=== PATIENT | female | born 1930 | race Caucasian/White ===

== ENCOUNTER 2017-10-15 16:45 | Emergency (ER) | payer MEDICARE, BC ==
--- NOTE | 2017-10-15 17:28 | EDM.PDOC ---
ED HPI GENERAL MEDICAL PROBLEM - General Chief Complaint: ENT Problem Stated Complaint: SOB Time Seen by Provider: 10/15/17 16:51 Source of Information: Reports: Patient, Family, RN Notes Reviewed - History of Present Illness INITIAL COMMENTS - FREE TEXT/NARRATIVE: 87-year-old female comes in with cough and severe sore throat. Her started about 5-7 days ago and is just been steadily getting worse. It has been very painful to swallow. Her cough has started becoming productive. She does have throat and anterior chest discomfort with coughing. No fever or chills. No major nasal or sinus congestion, she does feel bilateral ear pressure worse with swallowing and coughing. - Related Data Allergies Allergy/AdvReac Type Severity Reaction Status Date / Time aspirin [From Percodan] Allergy Hives Verified 10/15/17 17:07 cefuroxime axetil Allergy unsure Verified 10/15/17 17:07 [From Ceftin] cephalexin [Cephalexin] Allergy Hives Verified 10/15/17 17:07 ciprofloxacin Allergy Hives Verified 10/15/17 17:07 codeine Allergy Hives Verified 10/15/17 17:07 divalproex sodium Allergy unsure Verified 10/15/17 17:07 [From Depakote] doxycycline Allergy Hives Verified 10/15/17 17:07 levofloxacin [From Levaquin] Allergy Hives Verified 10/15/17 17:07 morphine Allergy Hives Verified 10/15/17 17:07 nitrofurantoin Allergy Hives Verified 10/15/17 17:07 macrocrystalline [From Macrodantin] oxycodone HCl [From Percodan] Allergy Hives Verified 10/15/17 17:07 oxycodone terephthalate Allergy Hives Verified 10/15/17 17:07 [From Percodan] Sulfa (Sulfonamide Allergy Hives Verified 10/15/17 17:07 Antibiotics) tetracycline [Tetracycline] Allergy Hives Verified 10/15/17 17:07 Home Meds: Home Meds Ascorbic Acid [Vitamin C] 1,000 mg PO DAILY 10/15/17 [History] Aspirin 81 mg PO DAILY 10/15/17 [History] Calcium/Magnesium/Zinc [Calcium & Magnesium plus Zinc] 1 tab PO DAILY 10/15/17 [ History] Cyanocobalamin (Vitamin B12) [Vitamin B12] 1,000 mg PO DAILY 10/15/17 [History] Ergocalciferol (Vitamin D2) [Vitamin D2] 2,000 units PO DAILY 10/15/17 [History] Fluticasone Propionate [Flonase Allergy Relief] 1 spray CITLALY DAILY 10/15/17 [ History] Furosemide [Lasix] 80 mg PO DAILY 10/15/17 [History] Gluc/Osmar-Msm#1/Vit C/Delfin/Bor [Owwzdok-Wrxmj-TSN Complex Cplt] 1 tab PO BID [History] Ketotifen [Ketotifen 0.025% Ophth Soln] 1 drop EYEBOTH DAILY 10/15/17 [History] LORazepam [Ativan] 0.5 mg PO BID PRN 10/15/17 [History] Multivitamin with Minerals [Multivitamins with Minerals] 1 tab PO DAILY [History] Multivits-Min/Iron/FA/Lutein [Centrum Silver Women Tablet] 1 tab PO DAILY [History] Nebivolol HCl [Bystolic] 2.5 mg PO DAILY 10/15/17 [History] Nitroglycerin [Nitrostat] 0.4 mg PO Q5M PRN 10/15/17 [History] Sennosides [Senna] 1 tab PO DAILY 10/15/17 [History] Valsartan 320 mg PO DAILY 10/15/17 [History] amLODIPine Besylate [Amlodipine Besylate] 10 mg PO DAILY 10/15/17 [History] atorvaSTATin [Lipitor] 20 mg PO DAILY 10/15/17 [History] Social & Family History - Tobacco Use Second Hand Smoke Exposure: No - Alcohol Use Days Per Week of Alcohol Use: 0 - Recreational Drug Use Recreational Drug Use: No ED ROS ENT - Review of Systems Review Of Systems: See Below Constitutional: Denies: Fever, Chills HEENT: Reports: Sinus Problem. Denies: Throat Pain Respiratory: Denies: Shortness of Breath Cardiovascular: Reports: Chest Pain (With coughing) GI/Abdominal: Denies: Abdominal Pain, Nausea, Vomiting Musculoskeletal: Denies: Neck Pain Skin: Reports: No Symptoms Neurological: Reports: No Symptoms ED EXAM, ENT - Physical Exam Exam: See Below General Appearance: Alert, Mild Distress Eye Exam: Bilateral Eye: PERRL Mouth/Throat: Other (There is mild pharyngeal erythema). No: Throat Swelling Head: No: Facial Swelling, Facial Tenderness Neck: Supple, Lymphadenopathy (L), Lymphadenopathy (R) (Mild) Respiratory/Chest: No Respiratory Distress, Lungs Clear, Normal Breath Sounds. No: Rales, Rhonchi, Wheezing Cardiovascular: Regular Rate, Rhythm GI/Abdominal: Soft, Non-Tender Extremities: Normal Inspection, Normal Range of Motion Neurological: Alert, Oriented, No Motor/Sensory Deficits Skin: Warm, Dry, Normal Color Course - Vital Signs Last Recorded V/S: Last Vital Signs Temp 97.8 F 10/15/17 17:03 Pulse Resp 16 10/15/17 17:03 BP 154/57 H 10/15/17 17:03 Pulse Ox 100 10/15/17 17:03 - Orders/Labs/Meds Orders: Active Orders 24 hr Category Date Time Status Chest 1V Frontal [CR] Stat Exams 10/15/17 17:22 Taken STREP SCRN A RAPID W CULT CONF [RM] Stat Lab 10/15/17 17:30 Results Meds: Medications Discontinued Medications Generic Name Dose Route Start Last Admin Trade Name Tima PRN Reason Stop Dose Admin Hydrocodone Bitart/Acetaminophen 1 tab 10/15/17 19:23 [place] 325-5 Mg PO 10/15/17 19:24 ONETIME ONE Azithromycin 500 mg 10/15/17 19:23 Zithromax PO 10/15/17 19:24 ONETIME ONE Prednisone 20 mg 10/15/17 19:23 Prednisone PO 10/15/17 19:24 ONETIME ONE - Re-Assessments/Exams Free Text/Narrative Re-Assessment/Exam: 10/15/17 19:24 rapid strep is negative, asked x-ray does not show acute infiltrate. Ever due to severity of her pharyngitis, bronchitis am going to treat her with Zithromax, oral prednisone. We will give her hydrocodone right now to help her be able to rest and sleep better tonight. Discharge instructions as documented. Departure - Departure Time of Disposition: 19:12 Disposition: Home, Self-Care 01 Condition: Fair Clinical Impression: Bronchitis Pharyngitis Qualifiers: Pharyngitis/tonsillitis etiology: unspecified etiology Qualified Code(s): J02.9 - Acute pharyngitis, unspecified - Discharge Information Instructions: Pharyngitis, Acute Bronchitis, [id number] Referrals: PCP,Not In Area [Primary Care Provider] - Forms: ED Department Discharge Additional Instructions: Zithromax antibiotic, you've been given your first dose this evening, continue that for the next 5 days as prescribed, prednisone 20 mg every morning for the next 4 days, that should help swelling and inflammation, you've been given one hydrocodone while here in the ED, a prescription for 10 tabs, Insta med has been provided. Was in half and take one half tablet every 6 hours along with 500 mg Tylenol as needed for severe pain. When the discomfort lessens than switch over to 500 mg Tylenol 3-4 times daily as needed. Follow-up clinic if not much better within 5-7 days as expected, return to ED if symptoms worsening in any way - My Orders Last 24 Hours: My Active Orders 10/15/17 17:22 Chest 1V Frontal [CR] Stat 10/15/17 17:30 STREP SCRN A RAPID W CULT CONF [RM] Stat - Assessment/Plan Last 24 Hours: My Active Orders 10/15/17 17:22 Chest 1V Frontal [CR] Stat 10/15/17 17:30 STREP SCRN A RAPID W CULT CONF [RM] Stat
[2017-10-15] MEDS ORDERED: Acetaminophen/HYDROcodone 325-5 MG Tab PO ONE (19:23)
[2017-10-15] MEDS ORDERED: Azithromycin 250 MG Tab PO ONE (19:23)
[2017-10-15] MEDS ORDERED: predniSONE 20 MG Tab PO ONE (19:23)
--- NOTE | 2017-10-19 12:10 | CR ---
Chest: Portable view of the chest was obtained. Comparison: Prior chest x-ray of 06/01/14. Heart size and mediastinum are normal. Lungs are clear with no acute infiltrates. Bony structures are grossly intact. Impression: 1. Nothing acute is identified on portable chest x-ray. Diagnostic code #1
== END 2017-10-15 19:42 | disposition home or self-care (01) ==
LOC: JD.ED 16:45
DX: J40 Bronchitis, not specified as acute or chronic (principal); J02.9 Acute pharyngitis, unspecified; Z79.82 Long term (current) use of aspirin; Z79.899 Other long term (current) drug therapy; Z88.1 Allergy status to other antibiotic agents; Z88.2 Allergy status to sulfonamides; Z88.5 Allergy status to narcotic agent; Z88.6 Allergy status to analgesic agent; Z88.8 Allergy status to other drugs, medicaments and biological substances
CPT/HCPCS: 71010; 87081; 87430; 99283; A9270

== ENCOUNTER 2018-06-11 13:12 | Emergency (ER) | payer MEDICARE, BC ==
[2018-06-11] MEDS ORDERED: Acetaminophen/HYDROcodone 325-5 MG Tab PO STA (13:59)
[2018-06-11] MEDS ORDERED: predniSONE 20 MG Tab PO STA (13:59)
[2018-06-11] MEDS ORDERED: Orphenadrine 100 MG Tab.ER PO STA (14:00)
--- NOTE | 2018-06-11 14:09 | EDM.PDOC ---
ED HPI GENERAL MEDICAL PROBLEM - General Chief Complaint: Back Pain or Injury Stated Complaint: BACK PAIN Time Seen by Provider: 06/11/18 13:27 Source of Information: Reports: Patient, Family (Granddaughter) History Limitations: Reports: No Limitations - History of Present Illness INITIAL COMMENTS - FREE TEXT/NARRATIVE: The patient states that she fell in January 2018, and that she has had intermittent lower RIGHT back pain ever since. She states that x-rays were performed the same night as she fell were negative for fracture. The patient now presents with lower LEFT back pain, but the tingling sensation radiating down her left lower extremity to her toes, after pulling a heavy tote yesterday. She states that she took some Excedrin around 11:00 to noon today. The patient's PCP is Dr. Jaya Rubi at [facility]. Left Lower Back Pain Score (Numeric/FACES): 9 - Related Data Allergies Allergy/AdvReac Type Severity Reaction Status Date / Time aspirin [From Percodan] Allergy Hives Verified 06/11/18 13:24 cefuroxime axetil Allergy unsure Verified 06/11/18 13:24 [From Ceftin] cephalexin [Cephalexin] Allergy Hives Verified 06/11/18 13:24 ciprofloxacin Allergy Hives Verified 06/11/18 13:24 codeine Allergy Hives Verified 06/11/18 13:24 divalproex sodium Allergy unsure Verified 06/11/18 13:24 [From Depakote] doxycycline Allergy Hives Verified 06/11/18 13:24 levofloxacin [From Levaquin] Allergy Hives Verified 06/11/18 13:24 morphine Allergy Hives Verified 06/11/18 13:24 nitrofurantoin Allergy Hives Verified 06/11/18 13:24 macrocrystalline [From Macrodantin] oxycodone HCl [From Percodan] Allergy Hives Verified 06/11/18 13:24 oxycodone terephthalate Allergy Hives Verified 06/11/18 13:24 [From Percodan] Sulfa (Sulfonamide Allergy Hives Verified 06/11/18 13:24 Antibiotics) tetracycline [Tetracycline] Allergy Hives Verified 06/11/18 13:24 Home Meds: Home Meds Ascorbic Acid [Vitamin C] 1,000 mg PO DAILY 10/15/17 [History] Calcium/Magnesium/Zinc [Calcium & Magnesium plus Zinc] 1 tab PO DAILY 10/15/17 [ History] Cyanocobalamin (Vitamin B12) [Vitamin B12] 1,000 mg PO DAILY 10/15/17 [History] Ergocalciferol (Vitamin D2) [Vitamin D2] 2,000 units PO DAILY 10/15/17 [History] Fluticasone Propionate [Flonase Allergy Relief] 1 spray CITLALY DAILY 10/15/17 [ History] Furosemide [Lasix] 80 mg PO DAILY 10/15/17 [History] Gluc/Osmar-Msm#1/Vit C/Delfin/Bor [Ahoxmin-Ukpug-NCK Complex Cplt] 1 tab PO BID [History] Ketotifen [Ketotifen 0.025% Ophth Soln] 1 drop EYEBOTH DAILY 10/15/17 [History] LORazepam [Ativan] 0.5 mg PO BID PRN 10/15/17 [History] Multivitamin with Minerals [Multivitamins with Minerals] 1 tab PO DAILY [History] Multivits-Min/Iron/FA/Lutein [Centrum Silver Women Tablet] 1 tab PO DAILY [History] Nebivolol HCl [Bystolic] 2.5 mg PO DAILY 10/15/17 [History] Nitroglycerin [Nitrostat] 0.4 mg PO Q5M PRN 10/15/17 [History] Sennosides [Senna] 1 tab PO DAILY 10/15/17 [History] Valsartan 320 mg PO DAILY 10/15/17 [History] amLODIPine Besylate [Amlodipine Besylate] 10 mg PO DAILY 10/15/17 [History] atorvaSTATin [Lipitor] 20 mg PO DAILY 10/15/17 [History] Acetaminophen/HYDROcodone [[place]nee 325-5 MG] 1 tab PO Q6H PRN #15 tablet 06/11/18 [Rx] Orphenadrine [Norflex] 1 tab PO Q12H PRN #20 tab.er 06/11/18 [Rx] predniSONE [Prednisone] 1 tab PO DAILY #6 tablet 06/11/18 [Rx] Past Medical History HEENT History: Reports: Impaired Vision Cardiovascular History: Reports: High Cholesterol, Hypertension Gastrointestinal History: Reports: Colon Polyp, GERD 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: Reports: Endocrine/Metabolic History: Reports: Other (See Below) (Prediabetes) Oncologic (Cancer) History: Reports: Basal Cell Carcinoma (right nose, upper lip ) - Past Surgical History HEENT Surgical History: Reports: Cataract Surgery, Eye Surgery (Pellet excision from left eye, cyst from right eye), Tonsillectomy Cardiovascular Surgical History: Reports: Other (See Below) (Implantable loop recorder) GI Surgical History: Reports: Cholecystectomy, Colonoscopy Female Surgical History: Reports: Hysterectomy, Salpingo-Oophorectomy Neurological Surgical History: Reports: Lumbar Spine (L4-L5 fusion 2009) Social & Family History - Family History Family Medical History: Noncontributory - Tobacco Use Smoking Status *Q: Never Smoker - Caffeine Use Caffeine Use: Reports: Coffee - Alcohol Use Alcohol Use History: No - Recreational Drug Use Recreational Drug Use: No ED ROS GENERAL - Review of Systems Review Of Systems: ROS reveals no pertinent complaints other than HPI. ED EXAM,LOWER BACK PAIN/INJURY - Physical Exam Exam: See Below Exam Limited By: No Limitations General Appearance: Alert, WD/WN, No Apparent Distress Back Exam: Other (No visible abnormality to palpation of the patient's thoracic or lumbar spinous processes. There is reproducible tenderness to palpation over the left SI joint; none over the right SI joint. The patient is able to flex the spine to about 45, and extend to about 30. She is able to tilt to the left to about 10, to the right to about 30. She is able to twist the spine to about 20 bilaterally. Unilateral knee bend is impaired on the left, but not on the right. Straight leg raise is negative to about 80 on the right, 45 on the left, made worse with dorsiflexion of the left foot. Vascular status of the left lower extremity is intact.) Course - Vital Signs Last Recorded V/S: Last Vital Signs Temp 37.4 C 06/11/18 13:19 Pulse 69 06/11/18 13:19 Resp 16 06/11/18 13:19 BP 128/97 H 06/11/18 13:19 Pulse Ox 100 06/11/18 13:19 - Orders/Labs/Meds Meds: Medications Discontinued Medications Generic Name Dose Route Start Last Admin Trade Name Freq PRN Reason Stop Dose Admin Hydrocodone Bitart/Acetaminophen 1 tab 06/11/18 13:59 06/11/18 14:17 [place] 325-5 Mg PO 06/11/18 14:00 1 tab ONETIME STA Administration Orphenadrine Citrate 100 mg 06/11/18 14:00 06/11/18 14:17 Norflex PO 06/11/18 14:01 100 mg ONETIME STA Administration Prednisone 60 mg 06/11/18 13:59 06/11/18 14:18 Prednisone PO 06/11/18 14:00 60 mg ONETIME STA Administration Prednisone Confirm 06/11/18 14:12 06/11/18 14:16 Prednisone Administered 06/11/18 14:13 Not Given Dose 20 mg .ROUTE .[facility] - Re-Assessments/Exams Free Text/Narrative Re-Assessment/Exam: 06/11/18 14:04 The patient's history and physical examination is consistent with a herniated intervertebral disc. We discussed treatment options, and have decided to proceed with oral prednisone, even though that will almost certainly cause the patient's blood glucoses to elevate. The patient agrees to follow-up with her PCP in [place] on 06/14/2018, in this regard. I am going to recommend that the patient not take her daily aspirin (or any NSAID) while on prednisone. In addition, the patient will be treated with Shawnee and Norflex. The patient will be advised to not take lorazepam while taking [place]. Departure - Departure Time of Disposition: 14:04 Disposition: Home, Self-Care 01 Condition: Fair Clinical Impression: Herniated lumbar intervertebral disc - Discharge Information *PRESCRIPTION DRUG MONITORING PROGRAM REVIEWED*: Not Applicable *COPY OF PRESCRIPTION DRUG MONITORING REPORT IN PATIENT TANYA: Not Applicable Prescriptions: Acetaminophen/HYDROcodone [Shawnee 325-5 MG] 1 tab PO Q6H PRN #15 tablet PRN Reason: Pain (Moderate 4-6) Orphenadrine [Norflex] 1 tab PO Q12H PRN #20 tab.er PRN Reason: Muscle Spasm predniSONE [Prednisone] 1 tab PO DAILY #6 tablet Instructions: Herniated Disk Referrals: PCP,Not In Area [Primary Care Provider] - Jaya Rubi MD [Ordering Only Provider] - Forms: ED Department Discharge Additional Instructions: You were seen in the emergency room for low back pain, radiating down your left lower extremity. Based on your history and physical examination, you are MOST LIKELY suffering from a herniated lumbar intervertebral disc. You have been started on the steroid prednisone. Take one tablet daily, starting tomorrow, 06/12/2018, as prescribed. Prednisone will almost certainly cause your blood sugars to go high. You need to follow-up with your primary care physician in [place] on 06/14/2018, in this regard. It is very important that you not take prednisone and a NSAID, including aspirin , ibuprofen, or Aleve, at the same time, as taking prednisone and a NSAID together significantly increase your risk for developing a bleeding ulcer. We recommend that you stop taking your aspirin until your prednisone is finished. You have been started on the pain reliever Shawnee. Take one tablet up to every 6 hours, as needed for pain. Your next dose would be at 8:00 tonight. We recommend that you not take your Ativan if you're taking Shawnee, as the two of them together can cause too much drowsiness. You have been started on the muscle relaxant Norflex. Take one tablet every 12 hours, starting tomorrow morning, 06/12/2018, as prescribed. It is very important that you stay active. Swimming is best, but walking is also good. If any other problems, please do not hesitate to return to the ER.
[2018-06-11] MEDS ORDERED: predniSONE 20 MG Tab ONE (14:12)
== END 2018-06-11 14:30 | disposition home or self-care (01) ==
LOC: JD.ED 13:12
DX: M51.26 Other intervertebral disc displacement, lumbar region (principal); E78.00 Pure hypercholesterolemia, unspecified; I10 Essential (primary) hypertension; Z88.1 Allergy status to other antibiotic agents; Z88.5 Allergy status to narcotic agent; Z88.8 Allergy status to other drugs, medicaments and biological substances; Z79.899 Other long term (current) drug therapy
CPT/HCPCS: 99283; A9270

== ENCOUNTER 2019-10-01 07:58 | Emergency (ER) | payer MEDICARE, BC ==
--- NOTE | 2019-10-01 08:04 | EDM.PDOC ---
ED HPI GENERAL MEDICAL PROBLEM - General Chief Complaint: General Stated Complaint: [facility] Time Seen by Provider: 10/01/19 08:03 - History of Present Illness INITIAL COMMENTS - FREE TEXT/NARRATIVE: 59-year-old female brought in by EMS left-sided neck shoulder and arm pain. On Thursday 3 days ago she developed some left-sided chest pain into her neck and shoulder. This is now premature neck and back on the left side around her shoulder blade this comes into her neck where it seems to be the worst and down her left arm all the way down to the elbow. The patient said this started after she cleaned a spot above the rug when she got up she had this pain. The pain is changed somewhat in character. Patient saw chiropractor yesterday and this actually made it worse.. Patient has a history of having one cardiac stent placed in the 2012 another one several years ago in which she describes as the main artery that comes up from her legs. She has a strong family history of coronary artery disease. The patient has never smoked. At present the patient is treated for hypertension hyperlipidemia and currently is in a a GI workup for dyspepsia she's on a PPI. The patient received nitroglycerin by EMS that helped significantly she also received 324 mg of aspirin Chest Pain Score (Numeric/FACES): 6 - Related Data Allergies Allergy/AdvReac Type Severity Reaction Status Date / Time acetaminophen Allergy Other Verified 10/01/19 08:13 [From Tylenol-Codeine #3] aspirin [From Percodan] Allergy Confusion Verified 10/01/19 08:13 cefuroxime axetil Allergy unsure Verified 10/01/19 08:08 [From Ceftin] cephalexin [Cephalexin] Allergy Hives Verified 10/01/19 08:08 ciprofloxacin Allergy Hives Verified 10/01/19 08:08 codeine Allergy Hives Verified 10/01/19 08:08 divalproex sodium Allergy unsure Verified 10/01/19 08:08 [From Depakote] doxycycline Allergy Hives Verified 10/01/19 08:08 erythromycin base Allergy Cannot Verified 10/01/19 08:13 [From Erythrocin] Remember levofloxacin [From Levaquin] Allergy Hives Verified 10/01/19 08:08 morphine Allergy Hives Verified 10/01/19 08:08 nitrofurantoin Allergy Anaphylactic Verified 10/01/19 08:13 [From Macrodantin] Shock nitrofurantoin Allergy Hives Verified 10/01/19 08:08 macrocrystalline [From Macrodantin] oxycodone [From Percodan] Allergy Confusion Verified 10/01/19 08:13 oxycodone HCl [From Percodan] Allergy Hives Verified 10/01/19 08:08 oxycodone terephthalate Allergy Hives Verified 10/01/19 08:08 [From Percodan] Sulfa (Sulfonamide Allergy Hives Verified 10/01/19 08:08 Antibiotics) tetracycline [Tetracycline] Allergy Hives Verified 10/01/19 08:08 Home Meds: Home Meds Ascorbic Acid [Vitamin C] 1,000 mg PO DAILY 10/15/17 [History] Calcium/Magnesium/Zinc [Calcium & Magnesium plus Zinc] 1 tab PO DAILY 10/15/17 [ History] Cyanocobalamin (Vitamin B12) [Vitamin B12] 1,000 mg PO DAILY 10/15/17 [History] Ergocalciferol (Vitamin D2) [Vitamin D2] 2,000 units PO DAILY 10/15/17 [History] Fluticasone Propionate [Flonase Allergy Relief] 1 spray CITLALY DAILY 10/15/17 [ History] Multivitamin with Minerals [Multivitamins with Minerals] 1 tab PO DAILY [History] Multivits-Min/Iron/FA/Lutein [Centrum Silver Women Tablet] 1 tab PO DAILY [History] Nebivolol HCl [Bystolic] 2.5 mg PO DAILY 10/15/17 [History] Nitroglycerin [Nitrostat] 0.4 mg PO Q5M PRN 10/15/17 [History] Sennosides [Senna] 1 tab PO BEDTIME PRN 10/15/17 [History] amLODIPine Besylate [Amlodipine Besylate] 10 mg PO DAILY 10/15/17 [History] atorvaSTATin [Lipitor] 20 mg PO DAILY 10/15/17 [History] Aspirin 325 mg PO DAILY 10/01/19 [History] Olmesartan [Benicar] 20 mg PO DAILY 10/01/19 [History] Pantoprazole Sodium [Protonix] 40 mg PO DAILY 10/01/19 [History] Prednisolone Acetate/Pf [Prednisolone Acet 1% Eye Drop] 1 drop EYELF DAILY 10/01 [History] Past Medical History HEENT History: Reports: Impaired Vision Cardiovascular History: Reports: High Cholesterol, Hypertension Gastrointestinal History: Reports: Colon Polyp, GERD Other Gastrointestinal History: Stent HOT TOP LINER History: Reports: Endocrine/Metabolic History: Reports: Other (See Below) (Prediabetes) Oncologic (Cancer) History: Reports: Basal Cell Carcinoma (right nose, upper lip ) - Past Surgical History HEENT Surgical History: Reports: Cataract Surgery, Eye Surgery (Pellet excision from left eye, cyst from right eye), Tonsillectomy Cardiovascular Surgical History: Reports: Other (See Below) (Implantable loop recorder) GI Surgical History: Reports: Cholecystectomy, Colonoscopy Female Surgical History: Reports: Hysterectomy, Salpingo-Oophorectomy Neurological Surgical History: Reports: Lumbar Spine (L4-L5 fusion 2008) Social & Family History - Family History Family Medical History: Noncontributory - Caffeine Use Caffeine Use: Reports: Coffee ED ROS GENERAL - Review of Systems Review Of Systems: See Below Constitutional: Reports: No Symptoms HEENT: Reports: No Symptoms Respiratory: Reports: No Symptoms Cardiovascular: Reports: Chest Pain Endocrine: Reports: No Symptoms GI/Abdominal: Reports: Other (She has some heartburn this seems to be not too significant at this time) : Reports: No Symptoms Musculoskeletal: Reports: Neck Pain, Shoulder Pain, Back Pain Skin: Reports: No Symptoms Neurological: Reports: No Symptoms Psychiatric: Reports: No Symptoms Hematologic/Lymphatic: Reports: No Symptoms Immunologic: Reports: No Symptoms ED EXAM, GENERAL - Physical Exam Exam: See Below Exam Limited By: No Limitations General Appearance: Alert, No Apparent Distress Head: Atraumatic, Normocephalic Neck: Normal Inspection, Supple, Non-Tender, Full Range of Motion. No: Lymphadenopathy (L), Lymphadenopathy (R) Respiratory/Chest: No Respiratory Distress, Lungs Clear, Normal Breath Sounds Cardiovascular: Regular Rate, Rhythm, No Edema, No Murmur GI/Abdominal: Normal Bowel Sounds, Soft, Other (Some vague left upper abdominal discomfort with palpation no rigidity or rebound noted) Back Exam: Normal Inspection, Other (She has some tenderness around the tip of the scapula and again at the base the neck on the left side none in the shoulder palpation does not seem to make this worse however). No: CVA Tenderness (L), CVA Tenderness (R) Extremities: Normal Inspection, Non-Tender, No Pedal Edema Neurological: Alert, Oriented, Normal Cognition EKG INTERPRETATION EKG Date: 10/01/19 Rhythm: NSR Rate (Beats/Min): 79 [place]: Normal P-Wave: Present QRS: Other (Intraventricular conduction delay) ST-T: Depressed (V3 V4 V5 and lead II to a lesser degree) QT: Normal Comparison: NA - No Prior EKG EKG Interpretation Comments: Abnormal possible ischemia Course - Vital Signs Last Recorded V/S: Last Vital Signs Temp 36.9 C 10/01/19 08:04 Pulse 78 10/01/19 08:04 Resp BP 179/61 H 10/01/19 08:24 Pulse Ox 100 10/01/19 08:04 - Orders/Labs/Meds Orders: Active Orders 24 hr Category Date Time Status EKG Documentation Completion [RC] ASDIRECTED Care 10/01/19 08:09 Active Chest 1V Frontal [CR] Stat Exams 10/01/19 08:08 Taken Nitroglycerin [Nitrostat] Med 10/01/19 08:17 Active 0.4 mg SL Q5M PRN EKG 12 Lead [EK] Stat Ther 10/01/19 08:08 Ordered Medication Orders Nitroglycerin (Nitrostat) 0.4 mg SL Q5M PRN PRN Reason: Chest Pain Last Admin: 10/01/19 08:24 Dose: 0.4 mg Labs: Laboratory Tests 10/01/19 10/01/19 10/01/19 Range/Units 08:05 08:05 08:05 WBC 15.92 H (3.98-10.04) K/mm3 RBC 3.48 L (3.98-5.22) M/mm3 Hgb 11.0 L (11.2-15.7) gm/dl Hct 33.1 L (34.1-44.9) % MCV 95.1 H (79.4-94.8) fl MCH 31.6 (25.6-32.2) pg MCHC 33.2 (32.2-35.5) g/dl RDW Std Deviation 51.9 H (36.4-46.3) fL Plt Count 291 (182-369) K/mm3 MPV 10.1 (9.4-12.3) fl Neut % (Auto) 68.9 (34.0-71.1) % Lymph % (Auto) 18.3 L (19.3-51.7) % [place] % (Auto) 11.0 (4.7-12.5) % Eos % (Auto) 1.1 (0.7-5.8) Baso % (Auto) 0.4 (0.1-1.2) % Neut # (Auto) 10.96 H (1.56-6.13) K/mm3 Lymph # (Auto) 2.92 (1.18-3.74) K/mm3 [place] # (Auto) 1.75 H (0.24-0.36) K/mm3 Eos # (Auto) 0.17 (0.04-0.36) K/mm3 Baso # (Auto) 0.07 (0.01-0.08) K/mm3 Manual Slide Review Abnormal smear PT (9.7-12.0) SECONDS INR APTT (22-31) SECONDS D-Dimer, Quantitative 0.49 (0.19-0.50) mg/L Sodium 146 H D (136-145) mEq/L Potassium 3.5 (3.5-5.1) mEq/L Chloride 108 H (98-107) mEq/L Carbon Dioxide 23 (21-32) mEq/L Anion Gap 18.5 H (5-15) BUN 21 H (7-18) mg/dL Creatinine 1.3 H (0.55-1.02) mg/dL Est Cr Clr Drug Dosing 26.20 mL/min Estimated GFR (MDRD) 39 (>60) mL/min BUN/Creatinine Ratio 16.2 (14-18) Glucose 160 H (83-115) mg/dL Calcium 9.2 (8.5-10.1) mg/dL Total Bilirubin 0.5 (0.2-1.0) mg/dL AST 15 (15-37) U/L ALT 19 (14-59) U/L Alkaline Phosphatase 69 (46-116) U/L Troponin I < 0.017 (0.00-0.056) ng/mL Total Protein 7.2 (6.4-8.2) g/dl Albumin 3.7 (3.4-5.0) g/dl Globulin 3.5 gm/dL Albumin/Globulin Ratio 1.1 (1-2) 10/01/19 Range/Units 08:05 WBC (3.98-10.04) K/mm3 RBC (3.98-5.22) M/mm3 Hgb (11.2-15.7) gm/dl Hct (34.1-44.9) % MCV (79.4-94.8) fl MCH (25.6-32.2) pg MCHC (32.2-35.5) g/dl RDW Std Deviation (36.4-46.3) fL Plt Count (182-369) K/mm3 MPV (9.4-12.3) fl Neut % (Auto) (34.0-71.1) % Lymph % (Auto) (19.3-51.7) % [place] % (Auto) (4.7-12.5) % Eos % (Auto) (0.7-5.8) Baso % (Auto) (0.1-1.2) % Neut # (Auto) (1.56-6.13) K/mm3 Lymph # (Auto) (1.18-3.74) K/mm3 [place] # (Auto) (0.24-0.36) K/mm3 Eos # (Auto) (0.04-0.36) K/mm3 Baso # (Auto) (0.01-0.08) K/mm3 Manual Slide Review PT 11.9 (9.7-12.0) SECONDS INR 1.10 APTT 23 (22-31) SECONDS D-Dimer, Quantitative (0.19-0.50) mg/L Sodium (136-145) mEq/L Potassium (3.5-5.1) mEq/L Chloride (98-107) mEq/L Carbon Dioxide (21-32) mEq/L Anion Gap (5-15) BUN (7-18) mg/dL Creatinine (0.55-1.02) mg/dL Est Cr Clr Drug Dosing mL/min Estimated GFR (MDRD) (>60) mL/min BUN/Creatinine Ratio (14-18) Glucose (83-115) mg/dL Calcium (8.5-10.1) mg/dL Total Bilirubin (0.2-1.0) mg/dL AST (15-37) U/L ALT (14-59) U/L Alkaline Phosphatase (46-116) U/L Troponin I (0.00-0.056) ng/mL Total Protein (6.4-8.2) g/dl Albumin (3.4-5.0) g/dl Globulin gm/dL Albumin/Globulin Ratio (1-2) Meds: Medications Generic Name Dose Route Start Last Admin Trade Name Freq PRN Reason Stop Dose Admin Nitroglycerin 0.4 mg 10/01/19 08:17 10/01/19 08:24 Nitrostat SL 0.4 mg Q5M PRN Administration Chest Pain Discontinued Medications Generic Name Dose Route Start Last Admin Trade Name Freq PRN Reason Stop Dose Admin Metoprolol Tartrate 2.5 mg 10/01/19 09:10 Lopressor IVPUSH 10/01/19 09:11 ONETIME ONE Nitroglycerin 1 gm 10/01/19 08:27 10/01/19 08:30 Nitro-Bid 2% TOP 10/01/19 08:28 1 gm ONETIME ONE Administration - Re-Assessments/Exams Free Text/Narrative Re-Assessment/Exam: 10/01/19 08:35 Patient brought in by EMS with neck pain and shoulder pain she received nitroglycerin in route that helped significantly she also received aspirin. In the emergency department she received another sublingual nitroglycerin brought her pain down to about a 3 from a 5 she's had topical nitroglycerin in place now waiting to see how that goes labs ordered EKGs were done that are concerning with some ST depression in V3 4 and 5. Posterior leads were done that were nondiagnostic at V7 and V8 10/01/19 09:[address] Abreu, hospitalist at [facility] in [place] who is kind enough to accept the patient in transfer we'll go ahead and start the patient on heparin and gently try some Lopressor. I did discuss this with the patient her pain is back up to a 50 give her another sublingual nitroglycerin we may have to increase her topical Nitropaste. Departure - Departure Time of Disposition: 09:15 Disposition: DC/Tfer to Acute Hospital 02 Clinical Impression: Unstable angina - Discharge Information Forms: ED Department Discharge - My Orders Last 24 Hours: My Active Orders 10/01/19 08:08 Chest 1V Frontal [CR] Stat EKG 12 Lead [EK] Stat 10/01/19 08:09 EKG Documentation Completion [RC] ASDIRECTED 10/01/19 08:17 Nitroglycerin [Nitrostat] 0.4 mg SL Q5M PRN - Assessment/Plan Last 24 Hours: My Active Orders 10/01/19 08:08 Chest 1V Frontal [CR] Stat EKG 12 Lead [EK] Stat 10/01/19 08:09 EKG Documentation Completion [RC] ASDIRECTED 10/01/19 08:17 Nitroglycerin [Nitrostat] 0.4 mg SL Q5M PRN
[2019-10-01] MEDS: Nitroglycerin 0.4 MG Tab.SL SL PRN ×3 (08:24→10:06)
[2019-10-01] MEDS ORDERED: Nitroglycerin 2% Oint 1 GM UD Packet TOP ONE (08:27)
[2019-10-01] MEDS ORDERED: Metoprolol Tartrate 5 MG/5 ML SDV IVPUSH ONE ×2 (09:10→09:37)
[2019-10-01] MEDS ORDERED: Heparin Sodium 5,000 Units/ML Vial IVPUSH ONE (09:28)
[2019-10-01] MEDS ORDERED: Heparin Sodium/D5W 25,000 UNITS/500 ML BAG IV SCH (09:30)
[2019-10-01] MEDS ORDERED: Metoprolol Tartrate 25 MG Tab PO ONE (10:00)
--- NOTE | 2019-10-01 11:30 | CR ---
Chest: Portable view of the chest was obtained. Comparison: Prior chest x-ray of 10/15/17. Heart size and mediastinum are within normal limits for portable technique. Lungs are clear with no acute parenchymal change. Bony structures are grossly intact. Impression: 1. Nothing acute is seen on portable chest x-ray. Diagnostic code #1
== END 2019-10-01 10:25 ==
LOC: JD.ED 07:58
DX: I20.0 Unstable angina (principal); I10 Essential (primary) hypertension; E78.5 Hyperlipidemia, unspecified; Z88.6 Allergy status to analgesic agent; Z88.1 Allergy status to other antibiotic agents; Z88.5 Allergy status to narcotic agent; Z88.2 Allergy status to sulfonamides; Z79.82 Long term (current) use of aspirin; Z79.899 Other long term (current) drug therapy
CPT/HCPCS: 36415; 71045; 80053; 84484; 85025; 85379; 85610; 85730; 93005; 96365; 96375; 99285; A9270; J1644; J3490; 93010